=== PATIENT | male | born 1995 | race Caucasian/White ===

== ENCOUNTER 2018-02-25 16:59 | Inpatient (IN) | payer OTHER ==
[~2018-02-25] VITALS: Ht 180.3 cm; Wt 73.5 kg
[2018-02-25 20:32] LABS: BASOPHIL % 0.1 % (0-2); PLATELET COUNT 179 x10^3mcL (130-400); RED CELL DISTRIBUTION WIDTH 13.1 % (11.5-14.5)
[2018-02-25 20:43] LABS: CALCIUM 9.1 mg/dL (8.5-10.1); CHLORIDE SERUM 103 mmol/L (98-107); CREATININE SERUM 1.2 mg/dL (0.7-1.3); GFR1 > 60 mL/min; GLUCOSE SERUM 124 mg/dL (74-106); POTASSIUM SERUM 4.1 mmol/L (3.5-5.1); SODIUM SERUM 141 mmol/L (136-145)
[2018-02-25 20:47] LABS: ALBUMIN 4.2 g/dL (3.4-5.0); ALKALINE PHOSPHATASE 57 U/L (46-116); ALT/SGPT 21 U/L (16-63); AST/SGOT 18 U/L (15-37); BILIRUBIN TOTAL 0.9 mg/dL (0.20-1.00); LIPASE 132 IU/L (73-393); TOTAL PROTEIN, SERUM 8.1 g/dL (6.4-8.2)
[2018-02-25 21:37] LABS: MAGNESIUM 1.5 mg/dL (1.8-2.4); PHOSPHOROUS 1.9 mg/dL (2.5-4.9)
[2018-02-25 21:43] LABS: CHOLESTEROL/HDL RATIO 2.5; T3 TOTAL 1.13 ng/mL
[2018-02-25 22:17] LABS: FREE T4 1.31 ng/dL (0.76-1.46); FREE THYROXINE INDEX 2.9 ug/dL (1.4-4.5); T4(THYROXINE) 8.8 ug/dL (4.7-13.3)
[2018-02-25 22:26] VITALS: BP 103/53
[2018-02-25 22:30] VITALS: Ht 180.3 cm; Wt 73.5 kg
[2018-02-26 01:30] LABS: microscopic required? NO
[2018-02-26 01:42] LABS: urine erythrocyte NEGATIVE (NEGATIVE)
[2018-02-26 02:06] LABS: AMPHETAMINE QUAL UR NONE DETECTED (See below)
[2018-02-26 05:23] LABS: BASOPHIL % 0.3 % (0-2); PLATELET COUNT 156 x10^3mcL (130-400); RED CELL DISTRIBUTION WIDTH 13.2 % (11.5-14.5)
[2018-02-26 05:35] LABS: CALCIUM 8.7 mg/dL (8.5-10.1); CARBON DIOXIDE 27.9 mmol/L (21-32); CHLORIDE SERUM 107 mmol/L (98-107); CREATININE SERUM 1.2 mg/dL (0.7-1.3); GFR1 > 60 mL/min; GLUCOSE SERUM 101 mg/dL (74-106); MAGNESIUM 2.5 mg/dL (1.8-2.4); PHOSPHOROUS 4.8 mg/dL (2.5-4.9); POTASSIUM SERUM 4.7 mmol/L (3.5-5.1); SODIUM SERUM 141 mmol/L (136-145)
[2018-02-26 05:40] VITALS: BP 95/53
[2018-02-26 09:23] VITALS: BP 94/52
[2018-02-26 14:09] VITALS: BP 99/49
[2018-02-26 20:54] VITALS: BP 106/57
[2018-02-27 05:21] VITALS: BP 100/56
[2018-02-27 06:04] LABS: BASOPHIL % 0.4 % (0-2); PLATELET COUNT 142 x10^3mcL (130-400); RED CELL DISTRIBUTION WIDTH 13.6 % (11.5-14.5)
[2018-02-27 06:40] LABS: CALCIUM 8.4 mg/dL (8.5-10.1); CARBON DIOXIDE 27.7 mmol/L (21-32); CHLORIDE SERUM 104 mmol/L (98-107); CREATININE SERUM 0.9 mg/dL (0.7-1.3); GFR1 > 60 mL/min; GLUCOSE SERUM 74 mg/dL (74-106); MAGNESIUM 2.1 mg/dL (1.8-2.4); PHOSPHOROUS 4.1 mg/dL (2.5-4.9); POTASSIUM SERUM 4.2 mmol/L (3.5-5.1); SODIUM SERUM 140 mmol/L (136-145)
[2018-02-27 09:14] VITALS: BP 112/67
[2018-02-27 16:15] VITALS: BP 99/63
[2018-02-27] MEDS ORDERED: NORCO1 TA2 PO (16:35)
[2018-02-27] MEDS ORDERED: COLACE100 MG PO (16:35)
[2018-02-27] MEDS ORDERED: BACTROBAN21 (16:36)
[2018-02-27] MEDS ORDERED: HIBICLENS118 ML TOP (16:38)
[2018-02-27 16:54] VITALS: BP 99/63
== END 2018-02-27 18:10 | disposition home or self-care (01) | DRG 343 ==
LOC: ED 16:59 → DU 20:58 → MU 02-26 21:37
PROVIDERS: Emergency Medicine; General Practice; Surgery
PROC: 0DTJ4ZZ Resection of Appendix, Percutaneous Endoscopic Approach (ICD-10-PCS; principal; 2018-02-26 08:45)
DX: K37 Unspecified appendicitis (principal); H01.006 Unspecified blepharitis left eye, unspecified eyelid; F12.90 Cannabis use, unspecified, uncomplicated; E83.42 Hypomagnesemia; H01.003 Unspecified blepharitis right eye, unspecified eyelid; Z72.89 Other problems related to lifestyle
CPT/HCPCS: 83880; 84439; 94150; J0330; J1170; J1885; J2270; J2405; J2543; J2704; J2710; J3010; J3475; J3490; J7030; J7120